=== PATIENT | female | born 1995 | race African-American/Black ===

== ENCOUNTER → 2018-12-08 | Emergency (ER) | payer MEDICAID ==
[~2018-12-08] VITALS: Ht 166.4 cm; Wt 64.9 kg
[~2018-12-08] MED LIST: PROMETHAZI6.25 MG/1 ORAL; ZITHROMAX250 MG ORAL
[2018-12-08 12:32] VITALS: BP 129/86
--- NOTE | 2018-12-08 12:53 | Emergency Room Report ---
History of Present Illness General Chief Complaint: Upper Respiratory Illness Source: Patient Present Illness HPI 23-year-old female with no symptom past medical history here complaining of 1 week of sore throat, cough and congestion with phlegm production. Denies fever and chills, headache and dizziness. Denies meningismus, photophobia. Denies abdominal pain, nausea vomiting. Has been taking hot tea for symptom relief. Patient has lost her voice. However sitting comfortably with stable vital signs. Denies chest pain, shortness of breath, palpitation, and other associated symptoms. Denies history of tobacco smoke, drug use, alcohol intake. Allergies: Coded Allergies: No Known Allergies (Unverified , 12/08/18) Patient History Past Medical History: see triage record Past Surgical History: unable to obtain Pertinent Family History: none Last Menstrual Period: 11/19/18 Now: No Immunizations: UTD Reviewed Nursing Documentation: PMH: Agreed; PSxH: Agreed Nursing Documentation-PMH Past Medical History: No History, Except For Hx Asthma: Yes Review of Systems All Other Systems: negative except mentioned in HPI Physical Exam Vital Signs Date Time Temp Pulse Resp B/P (MAP) Pulse Ox O2 Delivery O2 Flow Rate FiO2 12/08/18 12:32 98.2 63 18 129/86 (100) 99 Room Air Sp02 EP Interpretation: reviewed, normal General Appearance: no apparent distress, alert, GCS 15, non-toxic Head: normocephalic, atraumatic Eyes: bilateral eye normal inspection, bilateral eye PERRL ENT: hearing grossly normal, no angioedema, normal voice, TMs + canals normal, uvula midline, moist mucus membranes, pharyngeal erythema Neck: full range of motion, supple, thyroid normal, supple/symm/no masses Respiratory: chest non-tender, lungs clear, normal breath sounds, no rhonchi, no wheezing, speaking full sentences Cardiovascular #1: regular rate, rhythm, no edema, no murmur Gastrointestinal: normal bowel sounds, non tender, soft, non-distended, no guarding, no rebound Genitourinary: no CVA tenderness Musculoskeletal: back normal, gait/station normal, normal range of motion, non- tender Neurologic: alert, oriented x3, responsive, motor strength/tone normal, sensory intact, speech normal Psychiatric: judgement/insight normal, memory normal, mood/affect normal, no suicidal/homicidal ideation Skin: no rash Lymphatic: no adenopathy Medical Decision Making PA Attestation All diagnoses and treatment plans were reviewed and discussed with my supervising physician Dr. Kebede Diagnostic Impression: Primary Impression: Pharyngitis ER Course 23-year-old female with no symptom past medical history here complaining of 1 week of sore throat, cough and congestion with phlegm production. Denies fever and chills, headache and dizziness. Denies meningismus, photophobia. Denies abdominal pain, nausea vomiting. Has been taking hot tea for symptom relief. Patient has lost her voice. However sitting comfortably with stable vital signs. Denies chest pain, shortness of breath, palpitation, and other associated symptoms. Denies history of tobacco smoke, drug use, alcohol intake. Ddx considered but are not limited to: strep pharyngitis, URI, tonsillitis, peritonsillar abscess, influneza Vital signs: are WNL, pt. is afebrile H&PE are most consistent with: Pharyngitis presumed to be bacterial due to duration of symptoms and worsening the symptoms. ORDERS: Azithromycin, Phenergan ED INTERVENTIONS: None required at this time. DISCHARGE: At this time pt. is stable for d/c to home. Will provide printed patient care instructions, and any necessary prescriptions. Care plan and follow up instructions have been discussed with the patient prior to discharge. Patient to follow with a primary care provider, if worsening symptoms return to the emergency room. Last Vital Signs Date Time Temp Pulse Resp B/P (MAP) Pulse Ox O2 Delivery O2 Flow Rate FiO2 12/08/18 12:32 98.2 63 18 129/86 (100) 99 Room Air Disposition: HOME, SELF-CARE Condition: Stable Scripts Promethazine Hcl (PROMETHAZINE HCL*) 6.25 Mg/5 Ml Syrup 5 ML ORAL Q6H, #120 ML 0 Refills Prov: Js Salmon 12/08/18 Azithromycin* (ZITHROMAX*) 250 Mg Tablet 250 MG ORAL DAILY, #6 TAB 0 Refills Take two tables once daily for 1 day, then one tablet once daily for 4 days. Prov: Js Salmon 12/08/18 Patient Instructions: Pharyngitis, [id number] Additional Instructions: Take medication as directed, follow-up with your primary care provider, if worsening symptoms return to the emergency room. Js Salmon Dec 08, 2018 12:53
== END | disposition home or self-care (01) ==
LOC: EMR 12:50
DX: J02.9 Acute pharyngitis, unspecified (principal); J45.909 Unspecified asthma, uncomplicated
CPT/HCPCS: 99282

== ENCOUNTER 2019-08-01 03:09 | Emergency (ER) | payer MEDICAID ==
[~2019-08-01] VITALS: Ht 167.6 cm; Wt 68.0 kg
[2019-08-01 03:25] VITALS: BP 122/83
[2019-08-01] MEDS ORDERED: PREDNISONE20 MG ORAL (03:34)
--- NOTE | 2019-08-01 03:38 | Emergency Room Report ---
History of Present Illness General Chief Complaint: Sore Throat Source: Patient Present Illness HPI Disclaimer: Please note that this report is being documented using DRAGON technology. This can lead to erroneous entry secondary to incorrect interpretation by the dictating instrument. HPI: 23-year-old female presents for evaluation of sore throat. She was recently diagnosed with tonsillitis through a telemedicine visit. She was prescribed and finished a 10-day course of amoxicillin yesterday. Notes persistent sore throat and pain with swallowing. Denies any stridor, wheezing, difficulty breathing, vomiting, nasal congestion, throat closing sensation, tongue swelling or other changes in her health. Denies fever. PMH: Asthma PSH: Denied Allergies: Denied Social Hx: Denied Allergies: Coded Allergies: No Known Allergies (Unverified , 12/08/18) COVID-19 Screening Contact w/high risk pt: No Recent Travel to affected area: No Experienced COVID-19 symptoms?: No COVID-19 Testing performed MANUSCRIPT READER: No Patient History Last Menstrual Period: 07/2019 Nursing Documentation-PMH Hx Asthma: Yes Review of Systems All Other Systems: negative except mentioned in HPI Physical Exam Vital Signs Date Time Temp Pulse Resp B/P (MAP) Pulse Ox O2 Delivery O2 Flow Rate FiO2 08/01/19 03:12 100.0 120 16 122/83 (96) 95 General: Awake and alert, appears uncomfortable HEENT: NC/AT. EOMI. tonsils are 1+, nonedematous, no purulent drainage. Erythema over the tonsils and the pharynx. No stridor. No submandibular lymphadenopathy. Tolerating secretions Resp: Normal work of breathing. Skin: Intact. No abrasions, laceration or rash over the exposed skin MSK: Normal tone and bulk. Moving all extremities. No obvious deformity. Neuro: Awake and alert. Mentating appropriately. Medical Decision Making Diagnostic Impression: Primary Impression: Pharyngitis ER Course 23-year-old female recently treated for tonsillitis with amoxicillin finishing antibiotics yesterday presents for persistent sore throat. Initial etiology may have been viral and therefore the antibiotics not as useful. She is afebrile though does appear uncomfortable. Low risk by [employer] criteria. Do not believe she requires any further antibiotics at this time but will treat with steroids and antihistamines. She will follow-up with her PMD. Discussed reasons to return to the ED. She understands and agrees with treatment plan. Last Vital Signs Date Time Temp Pulse Resp B/P (MAP) Pulse Ox O2 Delivery O2 Flow Rate FiO2 08/01/19 03:25 100.0 120 16 122/83 95 Disposition: HOME, SELF-CARE Condition: Stable Scripts Prednisone* (PREDNISONE*) 20 Mg Tablet 40 MG ORAL DAILY for 3 Days, #6 TAB Prov: Vladimir Krueger MD 08/01/19 Referrals: NON PHYSICIAN (PCP) Patient Instructions: Tonsillitis, Sore Throat Additional Instructions: Take the steroids as prescribed and follow-up with your doctor in your neck scheduled appointment. If you experience high fevers, inability to swallow, difficulty breathing, wheezing or other changes in your health return to the emergency department for reevaluation. Vladimir Krueger MD Aug 01, 2019 03:38
[2019-08-01] MEDS ORDERED: DiphenhydrAMINE 25mg/10ml Elixir ORAL ONE (03:45)
[2019-08-01 03:50] VITALS: BP 122/83
== END 2019-08-01 03:50 | disposition home or self-care (01) ==
LOC: EMR 03:29
DX: J02.9 Acute pharyngitis, unspecified (principal)
CPT/HCPCS: J1100; Z7502; 99282

== ENCOUNTER 2020-02-27 14:52 | Emergency (ER) | payer MEDICAID ==
[~2020-02-27] VITALS: Ht 167.6 cm; Wt 63.5 kg
[~2020-02-27 14:52] MED LIST changes: +PREDNISONE20 MG ORAL
[2020-02-27 15:00] VITALS: BP 126/71
--- NOTE | 2020-02-27 15:00 | NUR ---
ED Nurse Note: Pt walked in from home c/o bilateral tosil swelling since this morning upon waking up. Respirations even and unlabored on room air. Vitals stable as documented. A+Ox4, speaking in complete sentences.
--- NOTE | 2020-02-27 15:27 | Emergency Room Report ---
History of Present Illness General Chief Complaint: Sore Throat Present Illness HPI 24 YO female presents to the ED c/o 03/[address] and tonsillar swelling x 1 day. denies fevers or chills. Denies neck pain/stiffness. Denies STONE. PT. denies rash or swelling of the lips or tongue. Pt. reports hx of asthma. she denies wheezing, cough, or SOB. Pt. reports some temporarily mild relief with gargling warm salt water. Pt. denies recent ill contacts. Pt. does report some nasal congestion which she though was seasonal allergies recently. She denies changes in voice. She denies inability to swallow. She reports body aches and fatigue. She denies or suspicion of . She denies taking any OTC medications. Allergies: Coded Allergies: No Known Allergies (Unverified , 12/08/18) COVID-19 Screening Contact w/high risk pt: No Recent Travel to affected area: No Experienced COVID-19 symptoms?: No COVID-19 Testing performed MANAGER COUNTRY: No Patient History Past Medical History: see triage record Past Surgical History: none Pertinent Family History: none Now: No Reviewed Nursing Documentation: PMH: Agreed; PSxH: Agreed Nursing Documentation-PMH Hx Asthma: Yes Review of Systems All Other Systems: negative except mentioned in HPI Physical Exam Vital Signs Date Time Temp Pulse Resp B/P (MAP) Pulse Ox O2 Delivery O2 Flow Rate FiO2 02/27/20 14:57 98.4 72 18 119/76 (90) 95 Room Air Sp02 EP Interpretation: reviewed, normal General Appearance: no apparent distress, alert, GCS 15, non-toxic Head: normocephalic, atraumatic Eyes: bilateral eye normal inspection, bilateral eye PERRL ENT: hearing grossly normal, normal voice, uvula midline, moist mucus membranes, pharyngeal erythema, other - no exudates, some cobble stoning noted. Neck: full range of motion, no meningismus, no bony tend Respiratory: chest non-tender, lungs clear, normal breath sounds, no respiratory distress, no accessory muscle use, no wheezing, speaking full sentences Cardiovascular #1: regular rate, rhythm, no edema Musculoskeletal: normal range of motion, gait/station normal, non-tender Neurologic: alert, motor strength/tone normal, oriented x3, sensory intact, responsive, speech normal Psychiatric: judgement/insight normal Skin: no rash, normal color Lymphatic: no adenopathy Medical Decision Making PA Attestation Dr. Caldera is my supervising Physician whom patient management has been discussed with. Diagnostic Impression: Primary Impression: Acute viral pharyngitis ER Course 24 YO female presents to the ED c/o /[address] and tonsillar swelling x 1 day. denies fevers or chills. Denies neck pain/stiffness. Denies STONE. PT. denies rash or swelling of the lips or tongue. Pt. reports hx of asthma. she denies wheezing, cough, or SOB. Pt. reports some temporarily mild relief with gargling warm salt water. Pt. denies recent ill contacts. Pt. does report some nasal congestion which she though was seasonal allergies recently. She denies changes in voice. She denies inability to swallow. She reports body aches and fatigue. She denies or suspicion of . She denies taking any OTC medications. Ddx considered but are not limited to: pharyngitis, strep, MANAGER COUNTRY, ludwigs angina, URI Vital signs: are WNL, pt. is afebrile H&PE are most consistent with: pharyngitis presumed viral in etiology vs possible PND. Pt. is non-toxic in appearance and NAD. ORDERS: None required at this time as the diagnosis is clinical ED INTERVENTIONS: none required at this time. -I do not identify an emergent condition at this time. With current presentation, pt. is stable for close outpatient follow up and conservative treatment. D/w pt. to return promptly to ED with worsening or new symptoms.- Pt. verbalizes' understanding and agreement with proposed treatment plan. DISCHARGE: At this time pt. is stable for d/c to home. Will provide printed patient care instructions, and any necessary prescriptions. Care plan and follow up instructions have been discussed with the patient prior to discharge. Last Vital Signs Date Time Temp Pulse Resp B/P (MAP) Pulse Ox O2 Delivery O2 Flow Rate FiO2 02/27/20 14:57 98.4 72 18 119/76 (90) 95 Room Air Disposition: HOME, SELF-CARE Condition: Stable Scripts Acetaminophen* (TYLENOL EXTRA STRENGTH*) 500 Mg Tablet 500 MG ORAL Q6H PRN for Mild Pain/Temp > 100.5, #30 TAB 0 Refills Prov: Gabrielle Charles 02/27/20 Lidocaine HCl 2% Viscous (Lidocaine HCl 2% Viscous) 100 Ml Solution 15 ML ORAL QID, #220 ML Prov: Gabrielle Charles 02/27/20 Referrals: NON PHYSICIAN (PCP) Kenzie Campbell [facility]. [facility] Patient Instructions: Sore Throat Additional Instructions: Take medications as directed. Follow up with a Primary Care Provider in 3-5 days, even if your symptoms have resolved. --Please review list of primary care clinics, if you do not already have a primary care provider Return sooner to ED if new symptoms occur, or current symptoms become worse. - Please note that this Emergency Department Report was dictated using [employer]ened[employer] superintendent technology software, occasionally this can lead to erroneous entry secondary to interpretation by the dictation equipment. Gabrielle Charles Feb 27, 2020 15:27
[2020-02-27] MEDS ORDERED: LIDOCAINE VISC100 ML ORAL (15:28)
[2020-02-27] MEDS ORDERED: TYLENOL EXTRA500 MG ORAL (15:28)
[2020-02-27 15:45] VITALS: BP 118/78
--- NOTE | 2020-02-27 15:45 | NUR ---
ER DISCHARGE NOTE: Patient is cleared to be discharged per ERMD, pt is aox4, on room air, with stable vital signs. pt was given dc and prescription instructions, pt was able to verbalize understanding, pt id band removed. pt is able to ambulate with steady gait. pt took all belongings.
== END 2020-02-27 15:45 | disposition home or self-care (01) ==
LOC: EMR 15:05
DX: J02.8 Acute pharyngitis due to other specified organisms (principal); J45.909 Unspecified asthma, uncomplicated
CPT/HCPCS: 99282

== ENCOUNTER 2020-03-26 17:14 | Emergency (ER) | payer MEDICAID ==
[~2020-03-26] VITALS: Ht 165.1 cm; Wt 63.5 kg
[~2020-03-26 17:14] MED LIST changes: +LIDOCAINE VISC100 ML ORAL; +TYLENOL EXTRA500 MG ORAL
[2020-03-26 17:34] VITALS: BP 111/74
--- NOTE | 2020-03-26 17:37 | NUR ---
ED Nurse Note: pt stated that she has had a toothache for the past month. had a consultation, told she needed oral surgery to remove molar. pain is right lower molar next to widom tooth. pt stated that her surgery has been postponed due to pandemic. states it's throbbing now and keeping her up at night.
[2020-03-26] MEDS ORDERED: AMOXICILLIN500 MG ORAL (17:42)
--- NOTE | 2020-03-26 17:46 | NUR ---
ER DISCHARGE NOTE: Patient is cleared to be discharged per ERMD, pt is aox4, on room air, with stable vital signs. pt was given dc and prescription instructions, pt was able to verbalize understanding. pt is able to ambulate with steady gait. pt took all belongings.
--- NOTE | 2020-03-26 20:19 | Emergency Room Report ---
History of Present Illness General Chief Complaint: Toothache Source: Patient Present Illness HPI 24-year-old female presents with tooth pain. States she is had pain for about 1 month. Scheduled to see a dentist for possible extraction but was delayed because of Covid. Pain is throbbing, 8 out of 10, nonradiating. Also notes pain to her tonsils. Denies fevers or chills. Denies cough. No other aggravating relieving factors. 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 Patient History Past Medical History: none Past Surgical History: none Pertinent Family History: none Social History: Denies: smoking, alcohol use, drug use Last Menstrual Period: 03/17/20 Now: No Immunizations: UTD Reviewed Nursing Documentation: PMH: Agreed; PSxH: Agreed Nursing Documentation-PMH Past Medical History: No History, Except For Hx Asthma: Yes Review of Systems All Other Systems: negative except mentioned in HPI Physical Exam Vital Signs Date Time Temp Pulse Resp B/P (MAP) Pulse Ox O2 Delivery O2 Flow Rate FiO2 03/26/20 17:26 98.4 79 20 111/74 (86) 94 Room Air Sp02 EP Interpretation: reviewed, normal General Appearance: no apparent distress, alert, GCS 15, non-toxic Head: normocephalic, atraumatic Eyes: bilateral eye normal inspection, bilateral eye PERRL ENT: hearing grossly normal, normal pharynx, no angioedema, normal voice, other - Pain to tooth #31 and 32. Molar appears impacted. Neck: full range of motion, supple/symm/no masses Respiratory: chest non-tender, lungs clear, normal breath sounds, speaking full sentences Cardiovascular #1: regular rate, rhythm, no edema Cardiovascular #2: 2+ carotid (R), 2+ carotid (L), 2+ radial (R), 2+ radial (L), 2+ dorsalis pedis (R), 2+ dorsalis pedis (L) Gastrointestinal: normal bowel sounds, non tender, soft, non-distended, no guarding, no rebound Rectal: deferred Genitourinary: normal inspection, no CVA tenderness Musculoskeletal: back normal, normal range of motion, gait/station normal, non- tender Neurologic: alert, motor strength/tone normal, oriented x3, sensory intact, responsive, speech normal Psychiatric: judgement/insight normal, memory normal, mood/affect normal, no suicidal/homicidal ideation Reflexes: 3+ bicep (R), 3+ bicep (L), 3+ tricep (R), 3+ tricep (L), 3+ knee (R), 3+ knee (L) Skin: no rash Lymphatic: no adenopathy Medical Decision Making Diagnostic Impression: Primary Impression: Toothache ER Course 24-year-old female presents ED complaining of tooth pain. Cracked tooth, dental abscess, cavity Patient placed on stretcher. After initial history, physical exam reveals a young female in mild distress. Is pain to palpation to the wisdom tooth in the right lower jaw as well as the tooth adjacent. No erythema or fluctuance. No pharyngeal erythema. No tonsillar swelling discussed findings with patient. Explained that she does need to see a dentist for possible extraction we will prescribe antibiotics. I will provide referrals Diagnosis- toothache Stable and discharged to home prescription for amoxicillin. Instructed to see dentist as a walk-in this week. Return to ED if symptoms recur or worse Last Vital Signs Date Time Temp Pulse Resp B/P (MAP) Pulse Ox O2 Delivery O2 Flow Rate FiO2 03/26/20 17:34 98.4 20 111/74 94 Room Air 03/26/20 17:26 79 Status: improved Disposition: HOME, SELF-CARE Condition: Stable Scripts Amoxicillin* (AMOXIL*) 500 Mg Capsule 500 MG ORAL THREE TIMES A DAY, #21 CAP Prov: Jono Caldera MD 03/26/20 Referrals: [facility],REFERR[facility] (PCP) [facility](age 2-12) - Orthodontic Clinic - Hours: Mon,Sat,, 8:15am and 1pm (new patient screening), Tu. 1pm. Emergency clinic Saturday - Saturday 8:30am and 1pm, Tu. 1pm. *Call to check if clinic is open; No appointment necessary for the first visit (new patient screening), Arrive 15-30 minutes early as it is first come, first serve. Patient Instructions: Dental Pain Jono Caldera MD Mar 26, 2020 20:19
== END 2020-03-26 17:50 | disposition home or self-care (01) ==
LOC: EMR 17:50
DX: K08.89 Other specified disorders of teeth and supporting structures (principal); J45.909 Unspecified asthma, uncomplicated
CPT/HCPCS: 99282